=== PATIENT | female | born 1965 | race Caucasian/White ===

== ENCOUNTER → 2020-10-27 | Outpatient (CLI) | payer OTHER ==
[~2020-10-27] MED LIST: ANTIVERT25 MG PO; CIPROFLOXACIN500 MG PO; CLARITIN10 MG PO; FISH OIL500 MG PO; LUTEIN1 BEA; XANAX2 MG PO; ZOLOFT100 MG PO
== END | disposition home or self-care (01) ==
LOC: COVID19 16:50
PROVIDERS: ATTEND Internal Medicine
DX: Z11.52 Encounter for screening for COVID-19 (principal)